=== PATIENT | female | born 1985 | race Caucasian/White ===

== ENCOUNTER 2019-03-24 13:04 | Outpatient (CLI) | payer OTHER ==
--- NOTE | 2019-03-24 16:01 | Ultrasound Report ---
Reason: UNSPECIFIED LUMP IN THE LEFT BREAST, UOQ Procedure Date: 03/24/2019 Accession Number: [id number] / [id number] Procedure: US - Breast Unilateral Limited CPT Code: FULL RESULT: EXAM: Breast Unilateral Limited DATE: 03/24/2019 2:03 PM CLINICAL HISTORY: Follow-up of probably benign left upper outer breast nodule. COMPARISON: 09/14/2018 TECHNIQUE: Targeted ultrasound was performed of the left breast in the area of clinical concern at 2 o'clock and 4 cm distance from the nipple. Color Doppler was employed as appropriate. FINDINGS: The previously identified wider than tall slightly heterogeneous mostly hypoechoic nodule with increased through transmission and an appearance most suggestive of a cluster of microcysts is unchanged in size and appearance, up to 0.9 cm when remeasured in similar fashion on previous and current exam. IMPRESSION: Probable benign findings RECOMMENDATION: Recommend diagnostic left breast ultrasound in 6 months. BIRADS CATEGORY 3 RADIA
== END 2019-03-24 13:05 | disposition home or self-care (01) ==
LOC: DI 13:04
PROVIDERS: ATTEND Physician Assistant
DX: N63.21 Unspecified lump in the left breast, upper outer quadrant (principal)
CPT/HCPCS: 76642

== ENCOUNTER 2019-09-16 16:34 | Outpatient (CLI) | payer OTHER ==
--- NOTE | 2019-09-16 18:04 | MRI Report ---
Reason: MIGRAINE HEADACHE Procedure Date: 09/16/2019 Accession Number: [id number] / [id number] Procedure: MRI - Brain W/O CPT Code: Final Report FULL RESULT: EXAM: MRI BRAIN WITHOUT CONTRAST COMPARISON: None. CLINICAL HISTORY: Migraine headache.Comments: Migraine in August that lasted for 5 days with dizziness, pressure behind her right eye and nausea. : No. Priors: No. TECHNIQUE: Multiplanar multisequence imaging is performed through the head without contrast. FINDINGS: Diffusion-weighted imaging shows no acute infarct. Gradient sequence shows no evident prior parenchymal hemorrhage. T2 FLAIR imaging shows minimal white matter T2 prolongation. No masses. T2 spin echo imaging shows no evident posterior fossa mass. No prior posterior fossa infarct. No abnormal FLAIR signal in the vertebral arteries. No skull base mass. No abnormal elevated T1 signal in the brain parenchyma. No developmental anomaly. Pituitary fossa, clivus and foramen magnum are unremarkable. No calvarial signal abnormality. IMPRESSION: No acute infarct, mass, or other discrete acute intracranial process identified. No etiology for headache is identified.
== END 2019-09-16 16:35 | disposition home or self-care (01) ==
LOC: DI 16:34
PROVIDERS: ATTEND Family Medicine
DX: G43.909 Migraine, unspecified, not intractable, without status migrainosus (principal)
CPT/HCPCS: 70551

== ENCOUNTER 2019-10-04 08:00 | Outpatient (CLI) | payer OTHER ==
[2019-10-04 18:46] LABS: BASOPHILS # (AUTO) 0.1 10^3/uL (0.0-0.1); BASOPHILS % (AUTO) 0.9 %; EOSINOPHILS # (AUTO) 0.2 10^3/uL (0.0-0.7); EOSINOPHILS % (AUTO) 3.3 %; HGB - HEMOGLOBIN 12.6 g/dL (12.0-16.0); LYMPHOCYTES # (AUTO) 1.7 10^3/uL (1.5-3.5); LYMPHOCYTES % (AUTO) 26.8 %; MEAN CORPUSCULAR HEMOGLOBIN 31.3 pg (27.0-31.0); MEAN CORPUSCULAR HGB CONC 32.7 g/dL (32.0-36.0); MEAN CORPUSCULAR VOLUME 95.5 fL (81.0-99.0); MEAN PLATELET VOLUME 11.8 fL (7.9-10.8); MONOCYTES # (AUTO) 0.7 10^3/uL (0.0-1.0); NEUTROPHILS # (AUTO) 3.7 10^3/uL (1.5-6.6); NEUTROPHILS % (AUTO) 57.8 %; PLT - PLATELET COUNT 241 10^3/uL (130-450); RED BLOOD COUNT 4.03 10^6/uL (4.20-5.40); RED CELL DISTRIBUTION WIDTH 14.1 % (12.0-15.0); WHITE BLOOD COUNT 6.4 x10^3/uL (4.8-10.8)
[2019-10-04 19:02] LABS: HB2 TOTAL 12.6 g/dL; HEMOGLOBIN A1C 0.47 g/dL; HEMOGLOBIN A1C % 5.6 % (4.6-6.2)
[2019-10-04 19:08] LABS: ALBUMIN 4.5 g/dL (3.2-5.5); ALBUMIN/GLOBULIN RATIO 1.5 (1.0-2.2); BILIRUBIN,TOTAL 0.4 mg/dL (0.2-1.0); CALCIUM 9.2 mg/dL (8.5-10.3); CREATININE 0.6 mg/dL (0.4-1.0); TOTAL PROTEIN 7.6 g/dL (6.7-8.2)
== END 2019-10-04 23:59 | disposition home or self-care (01) ==
LOC: LAB.WCP 08:00
PROVIDERS: ATTEND Physician Assistant
DX: R63.4 Abnormal weight loss (principal)
CPT/HCPCS: 36415; 80050; 83036

== ENCOUNTER 2019-10-17 14:42 | Outpatient (CLI) | payer OTHER ==
--- NOTE | 2019-10-17 16:40 | Ultrasound Report ---
Reason: LT BREAST NODULE Procedure Date: 10/17/2019 Accession Number: [id number] / [id number] Procedure: US - Breast Unilateral Limited CPT Code: Final Report FULL RESULT: EXAM: Breast Unilateral Limited DATE: 10/17/2019 3:39 PM CLINICAL HISTORY: LT BREAST NODULE COMPARISON: Diagnostic examination dated 09/14/2018 and ultrasound dated 03/24/2019. TECHNIQUE: Targeted ultrasound was performed of the left breast in the area of clinical concern at 2 o'clock and 4 distance from the nipple. Color Doppler was employed as appropriate. FINDINGS: The previously seen relatively well circumscribed 0.9 x 0.4 x 0.9 cm suspected cluster of microcysts remains probably benign with no suspicious interval change. No suspicious mass or architectural distortion is identified. IMPRESSION: Probable benign findings RECOMMENDATION: Recommend diagnostic left breast ultrasound in 12 months. BIRADS CATEGORY 3 RADIA
== END 2019-10-17 14:43 | disposition home or self-care (01) ==
LOC: DI 14:42
PROVIDERS: ATTEND Nurse Practitioner Family
DX: R92.8 Other abnormal and inconclusive findings on diagnostic imaging of breast (principal)
CPT/HCPCS: 76642

== ENCOUNTER 2020-12-13 10:26 | Outpatient (CLI) | payer OTHER ==
--- NOTE | 2020-12-14 09:35 | Ultrasound Report ---
LIMITED ULTRASOUND OF LEFT BREAST: 12/13/2020 CLINICAL: Patient returns for additional imaging over a suspected mass in the left breast. Comparison is made to exams dated: 10/17/2019 ultrasound, 03/24/2019 ultrasound, 09/14/2018 ultrasound, a nd 09/14/2018 mammogram - [facility]. Color flow ultrasound of the left breast 2 o'clock region was performed. Shelton scale images of the r eal-time examination were reviewed. Redemonstration of previously described 0.7 cm x 0.4 cm x 0.7 cm cluster of cysts in the left breast at 2 o'clock posterior depth 4 cm from the nipple. This cluster of oval cysts is hypoechoic. These abnormalities are not significantly changed and correlated with area of previously reported palpable concern. Color flow imaging demonstrates that there is no vascularity present. IMPRESSION: BENIGN There is no sonographic evidence of malignancy. The 0.7 cm x 0.4 cm x 0.7 cm cluster of oval cysts in the left breast has demonstrated two years of s tability and is consistent with a benign process. Recommend clinical follow up for persistent or wor sening symptoms, or development of any clinically suspicious findings. Recommend initiating routine screening mammograms at age 38. Findings and recommendations were conveyed to the patient during today's evaluation. This exam was interpreted at Station ID: [id number]. Electronically Signed By: Miguel Clement M.D. aty/:12/13/2020 11:57:45 Ultrasound BI-RADS: 2 Benign BI-RADS CATEGORY: (2) - 2 Mammogram [id number] 3 year screening LATERALITY: (B)
== END 2020-12-13 10:27 | disposition home or self-care (01) ==
LOC: DI 10:26
PROVIDERS: ATTEND Physician Assistant Medical
DX: R92.8 Other abnormal and inconclusive findings on diagnostic imaging of breast (principal); N60.12 Diffuse cystic mastopathy of left breast